=== PATIENT | male | born 2000 | race Caucasian/White ===

== ENCOUNTER 2021-12-14 15:14 | Emergency (ER) | payer MEDICAID ==
[~2021-12-14] VITALS: Ht 172.7 cm; Wt 50.0 kg
[2021-12-14 15:18] VITALS: BP 142/92
[2021-12-14] MEDS ORDERED: ACETAMINOPHEN 325MG TABLET PO ONE (16:45)
== END 2021-12-14 19:14 | disposition home or self-care (01) ==
LOC: ER 15:14
DX: S20.20XA Contusion of thorax, unspecified, initial encounter (principal); S50.02XA Contusion of left elbow, initial encounter; Y04.0XXA Assault by unarmed brawl or fight, initial encounter; Y07.410 Brother, perpetrator of maltreatment and neglect; Y93.89 Activity, other specified; Y92.018 Other place in single-family (private) house as the place of occurrence of the external cause
CPT/HCPCS: 71046; 71100; 73080; 99284